=== PATIENT | female | born 1985 | race Caucasian/White ===

== ENCOUNTER 2020-09-10 13:02 | Outpatient (CLI) | payer OTHER, SELFPAY ==
[2020-09-10 14:43] LABS: Hematocrit 31.1 % (37.0-47.0); Hemoglobin 10.6 g/dL (12.0-15.0); Mean Corpuscular HGB Conc 34.1 g/dl (32-36); Mean Corpuscular Hemoglobin 30.3 pg (26-34); Mean Corpuscular Volume 88.9 fl (80-100); Mean Platelet Volume 9.4 fl (7.4-10.4); Platelet Count Result 299 k/mm3 (150-375); Red Cell Distribution Width 12.9 % (11.5-14.5); White Blood Count 9.6 K/mm3 (4.5-10.0)
[2020-09-10 14:51] LABS: Glucose 1 Hour PP 50gm Dose 135 mg/dL
[2020-09-10 15:33] LABS: HIV 1/2 Ab P24 Ag Result Negative (Negative)
== END 2020-09-10 13:03 | disposition home or self-care (01) ==
PROVIDERS: PCP Obstetrics & Gynecology; Visit Provider Obstetrics & Gynecology
DX: Z34.92 Encounter for supervision of normal pregnancy, unspecified, second trimester (principal); Z3A.00 Weeks of gestation of pregnancy not specified
CPT/HCPCS: 36415; 82947; 85027; 85461; 86703; G0432

== ENCOUNTER 2020-09-15 10:08 | Outpatient (CLI) | payer OTHER, SELFPAY ==
[2020-09-15 10:54] LABS: Glucose Fasting Gestational 76 mg/dL (>/=95)
[2020-09-15 12:20] LABS: Glucose 1 Hour Gest 168 mg/dL (>/=180)
[2020-09-15 13:22] LABS: Glucose 2 Hour Gest 149 mg/dL (>/= 155)
[2020-09-15 14:24] LABS: Glucose 3 Hour Gest 111 mg/dL (>/=140)
== END 2020-09-15 10:09 | disposition home or self-care (01) ==
PROVIDERS: Visit Provider Obstetrics & Gynecology
DX: R73.9 Hyperglycemia, unspecified (principal)
CPT/HCPCS: 36415; 82951; 82952

== ENCOUNTER 2020-11-18 16:33 | Outpatient (RCR) | payer OTHER, SELFPAY ==
[2020-10-02 17:31] VITALS: BP 141/80; PULSE 87
[2020-10-14 18:05] VITALS: BP 122/63; PULSE 70
[2020-10-21 17:05] VITALS: BP 122/63; PULSE 70
[2020-10-21 17:25] VITALS: BP 126/72; PULSE 71
[2020-10-28 17:20] VITALS: BP 141/88; PULSE 70
[2020-11-04 17:51] VITALS: BP 127/81; PULSE 76
[2020-11-11 14:15] VITALS: BP 116/75; PULSE 78
--- NOTE | ~2020-11-18 | US_ITS ---
EXAMINATION: US OB limited w BPP DATE: 10/02/2020 17:55 INDICATION: Advanced maternal age. Fibroids. Third trimester. TECHNIQUE: Real-time pelvic ultrasound was performed. COMPARISON: None. FINDINGS: There is a single living fetus in vertex presentation. The placenta is fundal. heart rate is 1 41 beats per minute (bpm). The amniotic fluid index is 17.6 cm, which is normal. A 4.5 cm fibroid is noted. The following biometric data were obtained: Biparietal diameter (BPD): 8.5 cm; head circumference (HC): 30.6 cm; abdominal circumference (AC): 30 .0 cm; femur length (FL): 6.1 cm. These measurements are concordant. Estimated weight is 2136 g +/- 320 g, which correlates with 55th percentile when 11/22/20 is use d as estimated date of delivery. As single measurements, these parameters are each equal to the following estimated gestational ages: BPD: 34 weeks 2 days. HC: 34 weeks 0 days. AC: 33 weeks 4 days. FL: 31 weeks 6 days. estimated gestational age based solely on measurements from this exam is 33 weeks 3 days +/- 2 weeks 2 days. Biophysical profile performed by the technologist: breathing (30 sec sustained breathing in 30 minutes): 2 out of 2 movement (3 gross body movements in 30 minutes): 2 out of 2 tone (one episode of nyihfln-sudiglnkz-ybzmwld limb movement): 2 out of 2 Amniotic fluid pocket (2 cm): 2 out of 2 Total score: 8 out of 8 IMPRESSION: 1. Single living fetus in vertex presentation. 2. Estimated weight is 2136 g +/- 320 g, which correlates with 55th percentile when 11/22/20 is used as estimated date of delivery. 3. Biophysical profile 8 out of 8. 4. Uterine fibroid. Reviewed, dictated and finalized at location A. IMPRESSION: 1. Single living fetus in vertex presentation. 2. Estimated weight is 2136 g +/- 320 g, which correlates with 55th perc entile when 11/22/20 is used as estimated date of delivery. 3. Biophysical profile 8 out of 8. 4. Uterine fibroid.
--- NOTE | ~2020-11-18 | US_ITS ---
EXAMINATION: US OB BPP wo non-stress DATE: 10/28/2020 17:45 CDT INDICATION: Advanced maternal age TECHNIQUE: Real-time transabdominal obstetric ultrasound. FINDINGS: Ultrasound dated 10/21/2020 There is a single living fetus in vertex presentation. The placenta is anterior without placenta pre via. There is a hypoechoic uterine mass measuring 4.2 x 4.1 x 2.6 cm located anteriorly, compatible w ith fibroid. cardiac activity and movement is noted with a heart rate of 141 beats per minute. Biophysical profile: breathin of 2 movement: 2 of 2 tone: 2 of 2 Amniotic flud pocket: 2 of 2 Total score: 8 of 8 IMPRESSION: 1. Single living intrauterine in vertex presentation. 2: Total biophysical profile score of 8/8. 3: Anterior uterine fibroid measuring 4.2 x 4.1 x 2.6 cm. Reviewed, dictated and finalized at location A.
--- NOTE | ~2020-11-18 | US_ITS ---
EXAMINATION: US OB BPP wo non-stress DATE: 11/18/2020 17:38 INDICATION: Advanced maternal age, third trimester TECHNIQUE: Real-time pelvic ultrasound was performed. The interpreting radiologist was not present fo r the study. COMPARISON: 11/11/2020 FINDINGS: There is a single living fetus in vertex presentation. The placenta is fundal. heart rate is 14 1 beats per minute (bpm). The amniotic fluid index is subjectively normal. A 4 cm uterine fibroid is again noted. Biophysical profile performed by the technologist: breathing (30 sec sustained breathing in 30 minutes): 2 out of 2 movement (3 gross body movements in 30 minutes): 2 out of 2 tone (one episode of shkezsv-ortjxymer-xeabmzd limb movement): 2 out of 2 Amniotic fluid pocket (2 cm): 2 out of 2 Total score: 8 out of 8 IMPRESSION: 1. Single living fetus in vertex presentation. 2. Biophysical profile 8 out of 8. Reviewed, dictated and finalized at location A.
--- NOTE | ~2020-11-18 | US_ITS ---
US OB follow up w BPP DATE: 11/04/2020 18:24 INDICATION: growth evaluation TECHNIQUE: Real-time imaging and Doppler analysis COMPARISON: 10/28/2020 obstetrical ultrasound biophysical profile FINDINGS: Live single intrauterine gestation, fetus in vertex presentation, longitudinal lie with hea rt rate of 130 bpm. Approximately 2.4 x 4 cm uterine fibroid. Fundal placenta. Subjectively normal amount of amniotic fluid. Three-vessel umbilical cord. Biparietal diameter 8.91 cm; 36 weeks Head circumference 31.97 cm; 36 weeks Abdominal circumference 33.55 cm; 37 weeks 3 days Femur length 6.95 cm; 35 weeks 5 days Composite age by Hadlock formula is 36 weeks 2 days +/- 2 weeks 4 days with ARUN of 11/30/2020 based u ashley the current measurements, with ARUN of 11/30/2020, compared to 11/22/2020 by LMP. Head circumference/abdominal circumference 0.95, within normal range of 0.9 to-1.07 Femur length/BPD 78.04, within normal range of 71.0-87.0 Femur length/abdominal circumference 20.72, within normal range of 20.00-24.00 right femur length/hea d circumference 21.74, within normal range of 20.30-22.24 BIOPHYSICAL PROFILE reported by operator technician: breathin out of 2 movement: 2 out of 2 tone: 2 out of 2 Amniotic fluid pocket: 2 out of 2 Total score: 6 out of 8 IMPRESSION: Biophysical profile score of 6 out of 8 Reviewed, dictated and finalized at Location A. Reviewed, dictated and finalized at location A.
--- NOTE | ~2020-11-18 | US_ITS ---
EXAMINATION: US OB BPP wo non-stress DATE: 10/21/2020 17:24 INDICATION: Advanced maternal age. Third trimester. Uterine fibroids. TECHNIQUE: Real-time pelvic ultrasound was performed. COMPARISON: Ultrasound 10/14/2020 FINDINGS: There is a single living fetus in vertex presentation. The placenta is anterior. There is a 3.9 cm i ntramural fibroid anteriorly. heart rate is 142 beats per minute (bpm). Biophysical profile performed by the technologist: breathing (30 sec sustained breathing in 30 minutes): 2 out of 2 movement (3 gross body movements in 30 minutes): 2 out of 2 tone (one episode of ygiqpau-qinenpner-kouhgav limb movement): 2 out of 2 Amniotic fluid pocket (2 cm): 2 out of 2 Total score: 8 out of 8 IMPRESSION: 1. Single living fetus in vertex presentation. 2. Biophysical profile 8 out of 8. 3. Uterine fibroid. Reviewed, dictated and finalized at location A.
--- NOTE | ~2020-11-18 | US_ITS ---
US OB BPP wo non-stress DATE: 10/14/2020 18:04 INDICATION: Uterine fibroids. AMA TECHNIQUE: Real-time imaging and Doppler analysis COMPARISON: None FINDINGS: Live knowles intrauterine gestation, fetus in longitudinal lie, vertex presentation. Feta l heart rate of 165 bpm. Anterior placenta. Subjectively normal amount of amniotic fluid. BIOPHYSICAL PROFILE reported by mechanical laboratory technician: breathin out of 2 movement: 2 out of 2 tone: 2 out of 2 Amniotic fluid pocket: 2 out of 2 Total score: 8 out of 8 IMPRESSION: Normal biophysical profile score of 8 out of 8 Reviewed, dictated and finalized at Location A. Reviewed, dictated and finalized at location A.
--- NOTE | ~2020-11-18 | US_ITS ---
EXAMINATION: US OB BPP wo non-stress EXAM DATE: 11/11/2020 14:01 INDICATION: Advanced Maternal Age. 3rd trimester. TECHNIQUE: Pelvic obstetrical transabdominal sonogram was performed by a technologist. There are mu ltiple grayscale and Doppler images available for interpretation. Comparison is made to prior examina tion from 11/04/2020. FINDINGS: There is a single fetus identified in vertex presentation with a heart rate of 138 beats pe r minute. The placenta is located in the fundal position. There is no sonographic evidence of retrop lacental hemorrhage identified. There is subjectively expected amount of amniotic fluid. Anterior myometrial mass consistent with fibroid was measured at 3 x 4 cm. BIOPHYSICAL PROFILE (performed by the technologist) breathing (30 sec sustained breathing in 30 minutes): 2 out of 2 movement (3 gross body movements in 30 minutes): 2 out of 2 tone (one episode of ykhzbst-icxolqqhl-vgkocqo limb movement): 2 out of 2 Amniotic fluid pocket (2 cm): 2 out of 2 Total score: 8 out of 8 IMPRESSION: 1. Single fetus with heart rate of 138 bpm. 2. Normal biophysical profile score of 8 out of 8. Reviewed, dictated and finalized at location B.
[2020-11-18 18:38] VITALS: BP 129/85; PULSE 81
== END 2020-12-31 23:59 | disposition home or self-care (01) ==
LOC: ANHOBOP 16:33
PROVIDERS: Visit Provider Obstetrics & Gynecology
DX: O09.513 Supervision of elderly primigravida, third trimester (principal); D25.9 Leiomyoma of uterus, unspecified; Z3A.32 32 weeks gestation of pregnancy; Z3A.34 34 weeks gestation of pregnancy; Z3A.35 35 weeks gestation of pregnancy; Z3A.36 36 weeks gestation of pregnancy; Z3A.37 37 weeks gestation of pregnancy; Z3A.38 38 weeks gestation of pregnancy; Z3A.39 39 weeks gestation of pregnancy
CPT/HCPCS: 59025; 76815; 76816; 76819

== ENCOUNTER 2020-11-20 06:02 | Inpatient (IN) | payer OTHER, SELFPAY ==
[2020-11-20] VITALS (68 sets, daily range): BP systolic 97–164; BP diastolic 59–99; PULSE 32–124; RESP 16; TEMP 36.5–37.4; O2SAT 79–100; BMI 27.9
[2020-11-20] MEDS: OXYTOCIN 30 UNITS/NS 500 ML 30 UNITS/500 ML BAG 6 UNITS IV CONT (07:00)
--- NOTE | 2020-11-20 07:10 | LDADM ---
This patient, Michelle Flynn, was admitted to Labor/Delivery/Recovery 109 on 11/20/20 at 06:02. Plans for labor, pain management and were discussed with patient. Patient/family oriented to hospital policies and general routines including ID bracelet, bed and alarms, visiting hours, pain management, procedures, bathroom and other care routines, personal items, smoking policy, room service/diet and guest tray routines, infant security routines, and visiting hours. Patient/Family are encouraged to report perceived risks to care and to ask questions if they do not understand what they are told or what they should do. See OBIX for further documentation.
[2020-11-20 07:12] LABS: Basophils Absolute Auto 0.1 K/mm3 (0.0-0.1); Basophils Percent Auto 0.7 % (0.2-1.2); Eosinophils Absolute Auto 0.1 K/mm3 (0-0.3); Eosinophils Percent Auto 0.6 % (0-4.4); Hematocrit 35.7 % (37.0-47.0); Hemoglobin 12.4 g/dL (12.0-15.0); Immature Granulocyte Absolute 0.06 K/mm3 (0.00-0.031); Immature Granulocyte Percent A 0.6 % (0-0.5); Lymphocytes Absolute Auto 2.11 K/mm3 (0.9-3.2); Lymphocytes Percent Auto 20.6 % (18.3-44.2); Mean Corpuscular HGB Conc 34.7 g/dl (32-36); Mean Corpuscular Hemoglobin 30.7 pg (26-34); Mean Corpuscular Volume 88.4 fl (80-100); Mean Platelet Volume 10.4 fl (7.4-10.4); Monocytes Absolute Auto 0.7 K/mm3 (0.1-0.6); Monocytes Percent Auto 7.2 % (2.6-8.5); Neutrophils Absolute Auto 7.2 K/mm3 (1.3-6.7); Neutrophils Percent Auto 70.3 % (45.5-73.1); Platelet Count Result 222 k/mm3 (150-375); Red Blood Count 4.04 M/mm3 (4.2-5.4); Red Cell Distribution Width 13.2 % (11.5-14.5); White Blood Count 10.2 K/mm3 (4.5-10.0)
[2020-11-20] MEDS: LACTATED RINGERS 1,000 ML 125 ML IV CONT ×2 (07:17→10:02)
[2020-11-20] MEDS: fentaNYL CITRATE INJ (*CRX) 100 MCG/2 ML VIAL 50 MCG IV PUSH (09:19)
[2020-11-20 11:03] LABS: Rapid Plasma Reagin Non-Reactive (NonReactive)
--- NOTE | 2020-11-20 12:03 | WPDHPUPDATE1 ---
History and Physical Update Update Date/Time: 11/20/20 12:03 History and Physical has been reviewed, including an updated exam of the patient. There are NO changes in the patient's condition. Risks, benefits, and alternatives have been discussed and questions answered. Patient agrees to proceed with procedure.
--- NOTE | 2020-11-20 12:03 | WPDOBADMIT ---
Obstetrics - Admit Note Admission Note: record reviewed. No pertinent additions to the history and/or any subsequent changes in the physical findings that are not consistent with the expected course of the were found. Additions to the history and/or subsequent changes in the physical findings follow. None.
--- NOTE | 2020-11-20 12:04 | PM.OBPRVD ---
OB - Delivery Note Procedure Route of delivery: Laceration Description: Vaginal - 2nd Degree Delivery repair: chromic Specimen: No Quantitative Blood Loss (ml): 250 Anesthesia type: Epidural Disposition: floor Narrative: Prepped and draped in usual manner for this procedure. Maternal expulsive efforts delivered vertex with the rest baby readily following. Cord clamped and cut the placenta delivered spontaneously. Uterus was well contracted. Second-degree vaginal laceration was noted and approximated using 2 0 chromic in a running interlocking manner. At this point seizure was considered terminated patient's [facility] room stable condition. [place] Baby Weeks of gestation at delivery: 39 Infant gender: Female Weight (pounds): 8 Weight (ounces): 3 score one minute: 8 score five minutes: 9
[2020-11-20] MEDS: OXYTOCIN 30 UNITS/NS 500 ML 30 UNITS/500 ML BAG 125 UNITS IV CONT (12:26)
[2020-11-20] MEDS: WITCH HAZEL 40 PADS 1 PAD TOPICAL (14:04)
[2020-11-20] MEDS: BENZOCAINE 20% AER SPR (*SP) 56 GM CAN 1 SPRAY TOPICAL (14:04)
--- NOTE | 2020-11-20 14:27 | PC.NURSE ---
Patient transferred to post room #281 per wheelchair from labor and delivery. Support person present. Oriented to unit, room, information board, rooming in, admission packet and security measures. Patient verbalizes understanding.
[2020-11-20] MEDS: IBUPROFEN 600 MG TABLET PO (20:48)
[2020-11-21 04:30] VITALS: BP 103/63; PULSE 62; RESP 16; TEMP 36.4
[2020-11-21 05:36] LABS: Hematocrit 28.7 % (37.0-47.0); Hemoglobin 9.7 g/dL (12.0-15.0)
[2020-11-21 08:30] VITALS: BP 126/67; PULSE 94; RESP 18; TEMP 36.9; O2SAT 100
--- NOTE | 2020-11-21 08:30 | PC.NURSE ---
PT introductions made and plan of care discussed per post , pain management, breast feeding, daily care activities. PT sole recipient of instructions and care throughout the shift. PT received instructions per one to one , mom baby care guide and demonstrations. PT shows no evidence of any learning barriers at this time. PT verbalized understanding of such care.
--- NOTE | 2020-11-21 09:05 | PM.OBDSVD ---
DS: Admitting Diagnosis Discharge Date 11/22/20 Admitting Diagnosis OB - DS: Summary OB Procedures : None OB Procedures Intrapartum: Spontaneous Vag Delivery OB Procedures: : None Time Spent with Patient Time attestation: Total time spent providing and/or coordinating discharge services: DS: Data Data Completed and Pending Labs on day of discharge: Labs from last 24 hours 11/21/20 11/20/20 11/20/20 04:37 06:48 06:48 Hgb 9.7 L Hct 28.7 L RPR Non-reactive Blood Type B Negative Antibody Screen Negative Discharge Plan Discharge Discharging Clinician: Amish Kennedy Patient Disposition: Home, Self-Care Activity: as tolerated Diet: as tolerated Patient Instructions: Antibiotic Form Stand Alone Forms: General Discharge Information Follow-up/Referrals: Amish Kennedy MD [Physician] - 3 Weeks Discharge Medications: New ibuprofen 600 mg Tablet 600 mg PO Q6H PRN (Reason: Cramping) Qty: 30 RF: 0 Continued Vitamin Tablet 1 tablet PO DAILY RF: 0 ferrous sulfate 27 mg iron Tablet 27 mg PO DAILY RF: 0 Date of admission: 11/20/20 06:02 Primary Care Provider: PHYSICIAN,HEALTH AND SAFETY TECH Admitting Provider: Amish Kennedy Attending physician on admission: Amish Kennedy Condition: Stable
[2020-11-21] MEDS: IBUPROFEN 600 MG TABLET PO ×2 (09:59→17:54)
[2020-11-21] MEDS: DOCUSATE SODIUM 100 MG CAPSULE PO ×2 (10:00→17:55)
[2020-11-21] MEDS: MULTIVIT/MIN/PREN/FOL AC/IRON TABLET 1 TAB PO (10:00)
[2020-11-21] MEDS: POLYSACCHARIDE IRON COMPLEX 150 MG CAPSULE PO ×2 (10:00→17:55)
--- NOTE | 2020-11-21 11:31 | WPDANLDPN2 ---
Anes-Prog Note L&D Date/Time: 11/21/20 11:31 Comfortable throughout: labor and delivery Neuraxial method: epidural Epidural/Spinal procedure site: clean & non-tender Neuro status: Neuro function grossly intact. Cardiovascular status: normal Respiratory status: normal Airway patency: baseline Mental status: baseline Post-Op hydration status: normal Vital Signs: Last Vital Signs Temp 36.4 C 11/21/20 04:30 Pulse 62 11/21/20 04:30 Resp 16 11/21/20 04:30 BP 103/63 11/21/20 04:30 Pulse Ox 100 11/20/20 20:40 Pain score (VAS): 0 I/O: Intake & Output 11/20/20 11/21/20 11/21/20 23:59 07:59 15:59 Intake Total 500 Balance 500 Post-procedural complaints: none Patient feedback: Patient satisfied with anesthetic care.
[2020-11-21 19:20] VITALS: BP 116/69; PULSE 81; RESP 16; TEMP 36.6
--- NOTE | 2020-11-21 19:20 | PC.NURSE ---
Patient viewed the discharge video Mother & Baby Care, The First Two Weeks online. Patient was given the opportunity and encouraged to ask questions. Patient verbalized understanding of information shared and has been given the mother/baby guide for home reference.
--- NOTE | 2020-11-22 08:00 | PC.NURSE ---
PT introductions made and plan of care discussed per post , pain management, breast feeding, daily care activities and pending discharge to home. PT and spouse both recipients of instructions and care throughout the shift. PT received instructions per one to one , mom baby care guide and demonstrations. PT shows no evidence of any learning barriers at this time. PT verbalized understanding of such care.
[2020-11-22] MEDS: DOCUSATE SODIUM 100 MG CAPSULE PO (12:53)
[2020-11-22] MEDS: IBUPROFEN 600 MG TABLET PO (12:54)
[2020-11-22] MEDS: MULTIVIT/MIN/PREN/FOL AC/IRON TABLET 1 TAB PO (12:54)
[2020-11-22 12:55] VITALS: BP 128/66; PULSE 78; RESP 18; TEMP 36.6; O2SAT 100
[2020-11-22] MEDS: POLYSACCHARIDE IRON COMPLEX 150 MG CAPSULE PO (12:55)
--- NOTE | 2020-11-22 13:30 | PC.NURSE ---
PT received discharge instructions per protocol and verbalized understanding of such care. Patient was given the opportunity to view the discharge video Mother & Baby Care, The First Two Weeks and to ask questions. Patient declined viewing the video and has been given the mother/baby guide for home reference.
--- NOTE | 2020-11-22 13:49 | PC.NURSE ---
PT discharged to home ambulatory accompanied by spouse and and taken to waiting car. follow up appts confirmed
--- NOTE | 2020-11-23 12:20 | P.PCNOB_ITS ---
OB - Delivery Note Procedure Laceration Description: Vaginal - 2nd Degree Delivery repair: chromic Specimen: No Anesthesia type: Epidural Disposition: floor [place] [facility] Weeks of gestation at delivery: 39 Infant gender: Male Weight (pounds): 8 Weight (ounces): 3 score one minute: 8 score five minutes: 9
--- NOTE | 2020-11-24 07:12 | PM.OBDSVD ---
DS: Admitting Diagnosis Discharge Date 11/22/20 Admitting Diagnosis OB - DS: Summary OB Procedures : None OB Procedures Intrapartum: Spontaneous Vag Delivery OB Procedures: : None Time Spent with Patient Time attestation: Total time spent providing and/or coordinating discharge services: Discharge Plan Discharge Discharging Clinician: Amish Kennedy Patient Disposition: Home, Self-Care Activity: as tolerated Diet: as tolerated Discharge Instructions: Education: Mom and Baby Guide Given to: Mother Follow-Up: Call your delivering provider's office for an appointment to be seen in: 3 weeks Mom and baby should come to the [facility] for the follow-up appointment. Appointment Date/Time: November 25, 2020 at 10:00 am What to expect at your follow-up visit: Blood Pressure Check Call [phone] if you are unable to keep your appointment time. BREAST CARE: * Wear a snug supportive bra. * For engorgement discomfort: Breast Feeding: * Apply warm moist washcloths * Express milk as needed to relieve engorgement * Wear loose clothing Bottle Feeding: * May apply ice packs * For sore nipples: * Identify correct latch-on * Apply warm moist washcloths before and after nursing * Air dry nipples after nursing * May apply Lansinoh cream to nipples PERINEAL CARE: * Until bleeding stops, use your kiel bottle after urinating * Change your pad frequently throughout the day * You may take sitz baths several times a day (fill your bathtub with warm water and soak for 20 minutes.) Do NOT bathe in the water * No tub baths until seen by your physician - You may shower ACTIVITY: * Rest as much as possible. * Do not exercise or lift anything heavier than your baby (such as laundry or other children.) * Avoid stairs or driving as much as possible. * Do not put anything into the vagina. No douching, tampons, or sexual activity until seen by physician. NOTIFY PHYSICIAN IF YOU HAVE ANY QUESTIONS OR IF ANY OF THE FOLLOWING SYMPTOMS OCCUR: * If your perineum becomes red, swollen, or more painful than what you have experienced in the hospital. * If your vaginal bleeding becomes foul smelling. * If your vaginal bleeding becomes more heavy than a period or if your bleeding changes from pink to bright red. However, you may pass an occasional walnut-sized clot once or twice for the first week . * If you experience a sharp, shooting pain in you calves. * If you discover a hard, reddened area on your breast or if you experience flu-like symptoms. * If you have a fever of 100.4 or greater DIET: * Eat regular, well-balanced meals. * Drink plenty of fluids daily. If , drink to thirst. Patient Instructions: Antibiotic Form Stand Alone Forms: General Discharge Information Follow-up/Referrals: Amish Kennedy MD [Physician] - 3 Weeks Discharge Medications: New ibuprofen 600 mg Tablet 600 mg PO Q6H PRN (Reason: Cramping) Qty: 30 RF: 0 Continued prenat.vits,chantal,qyb-ulkj-hndff Tablet 1 tablet PO DAILY RF: 0 ferrous sulfate 27 mg iron Tablet 27 mg PO DAILY RF: 0 Date of admission: 11/20/20 06:02 Primary Care Provider: PHYSICIAN,MANUFACTURING TECHNOLOGY ANALYST Admitting Provider: Amish Kennedy Attending physician on admission: Amish Kennedy Condition: Stable
[2020-11-25 10:50] VITALS: BP 134/88; PULSE 78; RESP 20; TEMP 37.6; O2SAT 100
== END 2020-11-22 13:49 | disposition home or self-care (01) | DRG 807 ==
LOC: ANHLDR 06:10 → ANHOB2 14:36
PROVIDERS: Admitting Provider Obstetrics & Gynecology; Visit Provider Obstetrics & Gynecology
DX: O70.1 Second degree perineal laceration during delivery (principal); Z37.0 Single live birth; Z3A.39 39 weeks gestation of pregnancy; O34.13 Maternal care for benign tumor of corpus uteri, third trimester; D25.9 Leiomyoma of uterus, unspecified
CPT/HCPCS: 36415; 59025; 76819; 85014; 85018; 85025; 86592; 86850; 86900; 86901; A9270; J2590; J2795; J3010; J7120